=== PATIENT | male | born 1950 | race Caucasian/White ===

== ENCOUNTER → 2016-04-10 | Outpatient (CLI) | payer MEDICARE, BC, OTHER ==
[~2016-04-10] MED LIST: ALLE60TA PO; ALPR1TAB3 PO; ASPI1TAB69 PO; CALCTAB70 PO; FISH120014 PO; HYDR-3516 PO; LAMI200T PO; MULT1TAB84 PO; OXYC1TAB63 PO; QUET300XR PO; RAMI10CA PO; VITA400C2 PO; ZOFR4TAB PO
[2016-04-10 13:44] LABS: AUTOMATED NEUTROPHIL # 2.4 TH/MM3 (1.8-7.7); BASOPHIL % 0.4 % (0.0-2.0); EOSINOPHIL # 0.1 TH/MM3 (0-0.4); EOSINOPHIL % 2.7 % (0.0-4.0); HEMATOCRIT 39.6 % (39.0-51.0); HEMO FLAGS DIFF FINAL; LYMPH % 30.8 % (9.0-44.0); LYMPHOCYTE # 1.3 TH/MM3 (1.0-4.8); MEAN CELL VOLUME 96.2 FL (80.0-100.0); MEAN CORPUSCULAR HEMOGLOBIN 32.1 PG (27.0-34.0); MEAN CORPUSCULAR HGB CONC 33.4 % (32.0-36.0); MONO % 8.7 % (0.0-8.0); NEUT % 57.4 % (16.0-70.0); PLATELET COUNT 202 TH/MM3 (150-450); RED BLOOD COUNT 4.11 MIL/MM3 (4.50-5.90); RED CELL DISTRIBUTION WIDTH 14.2 % (11.6-17.2); WHITE BLOOD COUNT 4.2 TH/MM3 (4.0-11.0)
[2016-04-10 13:55] LABS: INTERNATIONAL NORMALIZED RATIO 0.9 RATIO; PROTHROMBIN TIME - PATIENT 10.2 SEC (9.8-11.6)
[2016-04-10 14:12] LABS: ALT (GPT) 28 U/L (12-78); ANION GAP 4 MEQ/L (5-15); AST (GOT) 19 U/L (15-37); BICARBONATE 30.4 MEQ/L (21.0-32.0); BLOOD UREA NITROGEN 13 MG/DL (7-18); CHLORIDE 103 MEQ/L (98-107); GLOMERULAR FILTRATION RATE 71 ML/MIN (>89); GLUCOSE,FASTING 113 MG/DL (74-99); POTASSIUM 4.3 MEQ/L (3.5-5.1); SODIUM (NA) 137 MEQ/L (136-145)
[2016-04-10 14:14] LABS: ALKALINE PHOSPHATASE 72 U/L (45-117); TOTAL BILIRUBIN ADULT 0.4 MG/DL (0.2-1.0)
--- NOTE | 2016-04-12 11:51 | EKG ---
Date Performed: 04/10/2016 Time Performed: 13:25:16 PTAGE: 66 years EKG: Sinus rhythm WITH FIRST DEGREE AV BLOCK LEFT ATRIAL ENLARGEMENT BORDERLINE RIGHT AXIS DEVIATION INTRAVENTRICULAR CONDUCTION DELAY ABNORMAL ECG NO PREVIOUS TRACING DOCTOR: Prateek Arellano Interpretating Date/Time 04/12/2016 11:49:44
== END ==
LOC: CPRE 13:00
PROVIDERS: ATTEND Orthopaedic Surgery
DX: Z01.812 Encounter for preprocedural laboratory examination (principal); Z01.810 Encounter for preprocedural cardiovascular examination; M75.41 Impingement syndrome of right shoulder; M75.42 Impingement syndrome of left shoulder; M75.121 Complete rotator cuff tear or rupture of right shoulder, not specified as traumatic; M75.122 Complete rotator cuff tear or rupture of left shoulder, not specified as traumatic; I44.0 Atrioventricular block, first degree; R94.31 Abnormal electrocardiogram [ECG] [EKG]
CPT/HCPCS: 36415; 80053; 85025; 85610; 85730; 93005

== ENCOUNTER → 2016-04-22 | Day surgery (SDC) | payer MEDICARE, BC ==
[~2016-04-22] VITALS: Ht 170.2 cm; Wt 84.7 kg
[~2016-04-22] MED LIST changes: +*RESP: ALBUTEROL 2.5 MG/3 ML NEB (PRN) PERIprocedural Use ONLY NEB ONE; +ACETAMINOPHEN/HYDROcodone 325 MG/5 MG TAB PO PRN; +BUPIVACAINE HCL PF 0.5% 30 ML VIAL NB ONE; +DO NOT ADM ANY ANTICOAGULANT DRUGS XX PRN; +EPINEPHrine HCL (1:1000) 30 MG/30 ML VIAL OTHER ONE; +FAMOTIDINE 20 MG/2 ML VIAL ONE; +INSULIN HUMAN REGULAR 1,000 UNITS/10 ML VIAL SQ PRN; +LACTATED RINGER'S 1000 ML INJ 1,000 ML IV ONE; +LACTATED RINGER'S 1000 ML IV SCH; +METOPROLOL TARTRATE 25 MG TAB PO PRN; +MIDAZOLAM HCL 5 MG/5 ML VIAL ONE; +MORPHINE SULFATE 4 MG/ML INJ IV PUSH PRN; +NEOSTIGMINE 3 MG/3 ML SYR IV ONE; +ONDANSETRON HCL 4 MG/2 ML VIAL IV PRN; +ONDANSETRON HCL 4 MG/2 ML VIAL IV PUSH ONE; +PHENYLEPH/NS 1000 MCG/10 ML SYR IV ONE; +POVIDONE IODINE 7.5% SCRUB 118 ML BOTTLE TOP SCH; +PROPOFOL 200 MG/20 ML AMP IV ONE; +SODIUM CHLOR 0.9% 1000 ML INJ 1,000 ML IV SCH; +SODIUM CHLOR 0.9% 250 ML INJ 250 ML IV ONE; +SODIUM CHLOR 0.9% 250 ML INJ 250 ML ONE; +SODIUM CHLORID 0.9% 500 ML IV SCH; +SODIUM CHLORIDE 0.9% FLUSH 5 ML FLUSH IVF PRN; +SODIUM CHLORIDE 0.9% FLUSH 5 ML FLUSH IVF SCH; +VANCOMYCIN 1000 MG/NS 250 ML (for <70 kg) IV SCH; +VANCOMYCIN HCL 1000 MG VIAL ONE; +ceFAZolin 2 GM PREMIX 50 ML IV SCH; +ceFAZolin INJ 1,000 MG VIAL IV ONE; +ePHEDrine/NS 25 MG/5 ML SYR IV ONE; +fentaNYL CITRATE 250 MCG/5 ML AMP ONE
[2016-04-22 06:28] VITALS: BP 96/59; PULSE 63; RESP 20; TEMP 97.6; O2SAT 95
--- NOTE | 2016-04-22 10:14 | MH ---
cc: TIFFANI MAYER DATE OF ADMISSION 04/22/2016 ADMISSION DIAGNOSIS Rotator cuff tear left shoulder PROPOSED SURGERY Arthroscopic surgery left shoulder with the repair rotator cuff and other associated procedures such as acromioplasty, possible excision lateral end of the clavicle or co-planing and possible biceps tenotomy. PRESENT HISTORY The patient has had problems with his left shoulder for two or more years and has been progressively getting worse with pain, stiffness and weakness. He had an MRI scan done in [place] in September 2014 and was scheduled for surgery, but had to be cancelled because of cardiac irregularity and he ended up getting a pacemaker put in. He has had steroid injections including February 2016. The last injection did not help at all. In January 2016, he reinjured the left shoulder trying to put luggage in an over-head compartment in an airplane resulting in further pain and discomfort. He saw me in March seeking surgery. PERSONAL/SOCIAL HISTORY He does not smoke. He drinks alcohol occasionally. He is retired. The tries to exercise. Dominant arm is right. PAST MEDICAL HISTORY 1. Bipolar disorder 2. Depression 3. Hypertension 4. Sleep apnea 5. Cardiac pacemaker status REVIEW OF SYSTEMS Noncontributory FAMILY HISTORY Noncontributory CURRENT MEDICATIONS 1. Lamictal 2. Seroquel 3. Alprazolam 4. Ramipril 5. Baby aspirin 6. Vitamins ALLERGIES None PHYSICAL EXAM Physical examination reveals a well-built and nourished white male who is awake, alert, and oriented. HEAD: Normocephalic. EYES: Pupils react to light. FACE: Symmetrical. HEART: Regular rhythm. No murmurs. He has a pacemaker in the left infraclavicular area away from the site of shoulder surgery. BREASTS: He has jewelry in his left nipple which he says cannot be removed because they tried to remove it when he had a pacemaker put in and they could not. ABDOMEN: Soft and supple. SHOULDER: Left shoulder has abduction of about 70-80 degrees, flexion 70-80 degrees with significant restriction in rotation. He does have good strength internal and external rotation, but painful. NEUROLOGIC EXAMINATION: Upper extremities is unremarkable. The nature of the problem, nature of treatment, potential risks, hazards, complications and expected results have all been discussed with the patient. Postoperative immobilization in an ultra sling, doctor directed exercises and therapy for the first several weeks were all discussed. Potential problems with pacemaker discussed, but since we use a bipolar, it should be minimal. He is certain it is not a defibrillator. X-ray done in the office reveals some spurring of the acromioclavicular joint. MRI scan done in [place] in 2014 shows a small full-thickness tear of the anterior portion of the supraspinatus. The patient is being advised that this tear may be much bigger than it is, it may be irreparable. He is advised about the consequences of biceps tenotomy without tenodesis. He is also advised that he probably does have some adhesive capsulitis and he will have to really work on getting range of motion postoperatively. Informed consent obtained. No guarantees made. MD NEHEMIAS Ingram/KAR /7:24 AM /10:04 AM
[2016-04-22 12:00] VITALS: BP 119/60; PULSE 70; RESP 16; TEMP 96.8; O2SAT 100
--- NOTE | 2016-04-23 11:35 | MP ---
cc: TIFFANI BERNABE DATE OF SURGERY 04/22/2016 PREOPERATIVE DIAGNOSIS Rotator cuff tear left shoulder. POSTOPERATIVE DIAGNOSES 1. Partial rotator cuff tear left shoulder. 2. Biceps tendinopathy. OPERATIVE PROCEDURE Arthroscopic surgery left shoulder consisting of the followin. Debridement and synovectomy left shoulder including biceps tenotomy. 2. Acromioplasty. 3. Co-planing lateral end of clavicle (modified Gustavo procedure). SURGEON Dr. Bernabe ANESTHESIA General. TECHNIQUE After induction of general anesthesia, the patient was placed in left lateral position, supported by the hip positioner with the patient tilted about 15 degrees towards the surgeon with good padding behind his back. Axillary roll had been placed, lower extremities were comfortably position and secured. The left upper extremity was placed in 10 pounds traction using [employer] using Acuflex positioner. The arm was placed in about 25 degrees of abduction. Left shoulder girdle had been thoroughly prepped with alcohol and ChloraPrep and draped in routine fashion including Ioban drape on the traction apparatus. Bony promises were marked. We could palpate the area of the pacemaker and it is well away from the site of surgery. After time-out, a scope was introduced through a stab incision. The posterior soft spot and systematic visualization joint was carried out. The patient has significant arthritis in this left shoulder with significant loss of articular cartilage both in the head of the humerus and the glenoid. There is a 1-cm tear of the anterior labrum anterior to the biceps anchor, a lot of inflammatory changes around the biceps anchor as well as partial rotator cuff tear of the anterior and posterior supraspinatus. Rotator cuff tear was carefully visualized. There was no evidence of any full-thickness tear to inspection as well as palpation with an obturator. An anterior portal had been established after needling through the rotator cuff interval. The biceps tendon is definitely subluxed and there appears to be partial tear of the subscapularis and therefore biceps tenotomy was carried out with an open-ended shaver. Synovectomy was carried out and the joint was lavaged and suctioned out. An 18-gauge needle was placed into the joint through the damaged portion of the rotator cuff and a 0 PDS suture was placed through it and brought out through the anterior portal and held with hemostats. The scope was introduced through the subacromial space where a bursectomy was carried out followed by acromioplasty as well as a co-planing of the lateral end of the clavicle. Rotator cuff was examined very carefully by inspection and palpation, particularly paying attention to the area where the PDS suture goes through and there is no indication of any full-thickness rotator cuff tear. The PDS suture was removed. Once I was satisfied with the inspection of the rotator cuff and the acromioplasty, the instrumentation was withdrawn. Portals were closed with interrupted 3-0 nylon sutures. Dressing was applied with Xeroform, 4x4s, ABD and Medipore tape. A sling was applied and the patient transferred to the recovery room in satisfactory condition. The patient tolerated the procedure well. TRANSFUSIONS AND COMPLICATIONS None. POSTOPERATIVE CONDITION Satisfactory. PROGNOSIS Guarded to good. 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 His MRI from 2014 indicated that there was probably a small full-thickness tear of the anterior portion of supraspinatus but we do not find any to repair. The biceps tendon was subluxed and tenotomy should help his pain quite a bit even though he may develop a Arvind arm. MD NEHEMIAS Ingram/TAYLOR /9:29 AM /11:19 AM
== END | disposition home or self-care (01) ==
LOC: HSDC 05:41 → EDUNIT# 07:30
PROVIDERS: ATTEND Orthopaedic Surgery
DX: M75.122 Complete rotator cuff tear or rupture of left shoulder, not specified as traumatic (principal); M75.42 Impingement syndrome of left shoulder; M75.22 Bicipital tendinitis, left shoulder; I10 Essential (primary) hypertension; G47.30 Sleep apnea, unspecified; F31.9 Bipolar disorder, unspecified; Z95.0 Presence of cardiac pacemaker
CPT/HCPCS: 01630; 23405; 29824; 29826; 29827; 64415; 94664; J0171; J0690; J2250; J2370; J2405; J2710; J3010; J3370; J7050; J7120; J7613